=== PATIENT | female | born 2000 | race Caucasian/White ===

== ENCOUNTER 2023-12-17 19:19 | Emergency (ER) | payer MEDICAID ==
[~2023-12-17] VITALS: Ht 157.5 cm; Wt 31.8 kg
[2023-12-17 19:25] VITALS: BP 117/60; PULSE 68; RESP 17; TEMP 98.4; O2SAT 98
[2023-12-17] MEDS: acetaminophen 325mg tablet PO ONE (20:29)
== END 2023-12-17 21:04 | disposition home or self-care (01) ==
LOC: ER 19:19
DX: S89.92XA Unspecified injury of left lower leg, initial encounter (principal); M25.562 Pain in left knee; W19.XXXA Unspecified fall, initial encounter; Y93.89 Activity, other specified; Y92.89 Other specified places as the place of occurrence of the external cause; Y99.8 Other external cause status
CPT/HCPCS: 73564; 99283; A6449

== ENCOUNTER 2025-02-23 13:49 | Emergency (ER) | payer MEDICAID ==
[~2025-02-23] VITALS: Ht 157.5 cm; Wt 80.8 kg
[2025-02-23 13:56] VITALS: TEMP 97.6
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
[2025-02-23] MEDS: normal saline 1000ML IV soln IVB STA (15:11)
[2025-02-23] MEDS: famotidine/PF 10 mg/ml inj IV ONE (15:11)
[2025-02-23] MEDS: albuterol 2.5 MG/3 ML nebule NEB ONE (15:16)
[2025-02-23 15:18] VITALS: PULSE 76; RESP 16; O2SAT 100
[2025-02-23 15:21] VITALS: PULSE 69; RESP 16; O2SAT 100
[2025-02-23] MEDS ORDERED: PRED20TA PO (15:54)
[2025-02-23] MEDS ORDERED: ALBU18HF2 INH (15:54)
[2025-02-23] MEDS ORDERED: FAMO-129 PO (15:54)
[2025-02-23 16:18] VITALS: BP 122/67; PULSE 78; RESP 21; O2SAT 100
== END 2025-02-23 16:22 | disposition home or self-care (01) ==
LOC: ER 13:50
DX: T78.40XA Allergy, unspecified, initial encounter (principal); Z79.899 Other long term (current) drug therapy; X58.XXXA Exposure to other specified factors, initial encounter
CPT/HCPCS: 94640; 96374; 96375; 99284; J2919; J3490; J7030; 94760

== ENCOUNTER 2025-03-13 13:09 | Emergency (ER) | payer MEDICAID ==
[~2025-03-13] VITALS: Ht 157.5 cm; Wt 81.3 kg
[~2025-03-13 13:09] MED LIST: ALBU18HF2 INH; FAMO-129 PO; PRED20TA PO
[2025-03-13] MEDS: famotidine/PF 10 mg/ml inj IV ONE (13:23)
--- NOTE | 2025-03-13 13:23 | Physician Documentation ---
History of Present Illness ~ Chief Complaint: Allergic Reaction Stated Complaint: ALLERGIC REACTION Time Seen by MD: 13:24 Primary Medical Doctor: Rick almeida HPI 24-year-old female presents to the emergency department reporting that she accidentally ingested cinnamon shortly prior to arrival. She did use her home epinephrine pen. This was aproximately 20 minutes ago. Symptoms include wheezing, chest tightness, throat tightness. She feels that her epinephrine helped, but only a little bit. Medication Reconciliation Allergies: Coded Allergies: cinnamon (Verified Allergy, Severe, Anaphylaxis, 03/13/25) Scheduled Famotidine (Pepcid), 1 TAB PO Q12H Prednisone* (Prednisone*), 2 TAB PO DAILY Scheduled PRN Albuterol Sulfate (Ventolin Hfa), 2 PUFFS INH Q4HPRN PRN for wheezing Epinephrine (Epinephrine), 1 SYR IM ONCE PRN for anaphylaxis Past Medical History Alcohol Use: Occasionally Drug Use: none Review of Systems ROS As stated above in the HPI, otherwise all systems are reviewed and negative. Physical Exam Vital Signs: Temperature: 97.0, Source: Temporal, Heart Rate: 92, Respiratory Rate: 16, BP: 124/59, Pulse Oximetry: 98, Weight: 81.300 Oxygen Flow Rate: 0 Physical Exam General: Alert, mild distress. HEENT: PERRL, EOMI, no injection, moist mucous membranes. Airway patent with uvula visible midline. Neck: Full range of motion. Respiratory: Mild wheezing, tachypnea. Chest: No accessory muscle use. Cardiovascular: Regular rate and rhythm, no murmurs. Tachycardic. Gastrointestinal: Soft, nontender, nondistended. Bowels sounds present. Extremities: Normal range of motion, no deformity. Neurologic: Oriented x4. Psychiatric: Normal mood and affect. Skin: Normal color, warm and dry. No edema, no ecchymosis. Progress Progress Note 1325: Reevaluated patient at bedside 5 minutes after solu-medrol, famotidine, and diphenhydramine. Airway remains patents. Sats over 100%. Mild distress, appears anxious, but reports that she is slowly but steadily feeling improved. Holding epi at this time. 1345: Reevaluated patient at bedside. Continues to feel improved. 1512: Patient has been observed in ER for over two hours. On reevaluation, she reports feeling completely improved. Epi pen sent to her pharmacy. Is to return if worse. Results/Orders Results/Orders Orders - BARAK MORALES SAFETY SCIENTIST Saline Lock (03/13/25 13:14) Completed Orders - BARAK MORALES SAFETY SCIENTIST Epinephrine Inj (Adrenalin Inj) (03/13/25 13:15) Diphenhydramine Inj (Benadryl Inj.) (03/13/25 13:15) Famotidine/Pf Iv Inj (Pepcid Iv Inj) (03/13/25 13:15) Methylprednisolone Sod Succ (Solumedrol (03/13/25 13:15) Electrocardiogram (03/13/25 ) Normal Saline 1000ml (0.9% Sodium Chlori (03/13/25 13:25) Ondansetron Inj. (Zofran 4mg/2ml Vial) (03/13/25 13:25) Medications Received in ER Medications (Trade) Dose Ordered Sig/Brenden Route PRN Reason Start Time Stop Time Status Last Admin Dose Admin (Benadryl inj.) 50 mg ONCE ONCE IV 03/13/25 13:15 03/13/25 13:16 DC 03/13/25 13:23 50 MG (Pepcid IV inj) 40 mg ONCE ONCE IV 03/13/25 13:15 03/13/25 13:16 DC 03/13/25 13:23 40 MG (SoluMEDROL 125mg inj) 125 mg ONCE ONCE IV 03/13/25 13:15 03/13/25 13:16 DC 03/13/25 13:23 125 MG Sodium Chloride 1,000 ml @ 1,000 mls/hr ONCE ONCE IV 03/13/25 13:25 03/13/25 14:24 DC 03/13/25 13:26 1,000 MLS/HR (Zofran 4mg/2ml vial) 4 mg ONCE ONCE IV 03/13/25 13:25 03/13/25 13:26 DC 03/13/25 13:26 4 MG Vital Signs 03/13/25 13:12 Temp 97.0 Pulse 92 Resp 16 B/P (MAP) 124/59 Pulse Ox 98 O2 Flow Rate 0 EKG/XRAY/CT/US/VASC/MRI EKG : Additional Comment 1324 EKG interpreted to show ST rate of 123. No ectopy. QTC prolonged at 514 ms. Medical Decision Making Additional information obtaine: old records Findings Patient has been here on two separate occasions for report of anaphylactic symptoms after ingesting cinnamon. These dates were 02/09/25 and 02/23/25. Differential Dx:Considerations: Include: Anaphylaxis, Angioedema, Bronchospasm, Contact dermatitis, Drug reaction, Hypotension, Latex allergy, Renal failure, Respiratory failure, Shock, Urticaria Departure Time of Disposition: 15:13 Disposition: 01 HOME / SELF CARE / HOMELESS Impression: Primary Impression: Acute allergic reaction Condition: Stable Discharge Instructions: Anaphylactic Reaction, Adult, [id number] Additional Instructions: You were sent a refill on your epi pen. Continue to avoid cinnamon. Followup with primary care, return immediately if worse. Departure Forms: Excuse form Work or School Excused From: Work Excuse beginning now through the following date: Mar 14, 2025 Referrals: NO PRIMARY CARE PROVIDER (PCP) Prescriptions Epinephrine (Epinephrine) 0.3 Mg/0.3 Ml Auto.injct 1 SYR IM ONCE PRN for anaphylaxis for 1 Day, #0.6 ML 0 Refills Prov: BARAK MORALES NP 03/13/25 Education Educated: Patient, Family Educated regarding: diagnosis, treatment, prognosis, need for follow up Signature Scribe Signature: x Attestation: The note accurately reflects work and decisions made by me.Barak Meyer NP 03/13/25 13:30 BARAK MORLAES NP Mar 13, 2025 13:23
[2025-03-13] MEDS: ondansetron/PF 4mg/2ml inj IV ONE (13:26)
[2025-03-13] MEDS: normal saline 1000ml 1,000 ML IV ONE (13:26)
--- NOTE | 2025-03-13 13:28 | ELECTROCARDIOGRAPH REPORT ---
[facility] Test Date: 2025-03-13 Test Time: 13:24:53 Pat Name: CASEY BO Department: EMERGENCY ROOM Room: Gender: F Social Work Msw: PRINCE : 2000 Requested By: BARAK MORALES Order Number: [id number] Reading MD: Measurements Intervals [place] Rate: 123 P: 62 MO: 144 QRS: 50 QRSD: 85 T: -73 QT: 359 QTc: 514 Interpretive Statements Sinus tachycardia Paired ventricular premature complexes Borderline repolarization abnormality Prolonged QT interval Please click the below link to view image of tracing.
[2025-03-13] MEDS ORDERED: EPIN0.3A3 IM (14:22)
[2025-03-13 15:23] VITALS: BP 110/58; PULSE 74; RESP 18; TEMP 97; O2SAT 99
== END 2025-03-13 15:32 | disposition home or self-care (01) ==
LOC: ER 13:10
DX: T78.40XA Allergy, unspecified, initial encounter (principal); Z88.8 Allergy status to other drugs, medicaments and biological substances; Z79.899 Other long term (current) drug therapy; X58.XXXA Exposure to other specified factors, initial encounter
CPT/HCPCS: 93005; 96361; 96374; 96375; 99284; J1200; J2405; J2919; J3490; J7030

== ENCOUNTER 2025-03-15 15:06 | Emergency (ER) | payer MEDICAID ==
[~2025-03-15] VITALS: Ht 157.5 cm; Wt 83.9 kg
[~2025-03-15 15:06] MED LIST changes: +EPIN0.3A3 IM
[2025-03-15 15:26] VITALS: BP 123/61; PULSE 73; RESP 18; TEMP 98.3; O2SAT 98
--- NOTE | 2025-03-15 15:29 | Physician Documentation ---
History of Present Illness ~ Stated Complaint: WRIST PAIN Time Seen by MD: 15:37 OK to notify your PCP?: Yes Primary Medical Doctor: Rick almeida Source: patient Mode of Arrival: POV Exam Limitations: no limitations HPI 24 yr old Female presents to the emergency department after a right hand injury while at work. She reports that she was at work, lifted a heavy box, and it fell and crushed her right hand. The pain is primarily to the right middle finger. Has not taken any medications prior to pain. Tetanus within 5 years: Yes Medication Reconciliation Allergies: Coded Allergies: cinnamon (Verified Allergy, Severe, Anaphylaxis, 03/15/25) Scheduled Famotidine (Pepcid), 1 TAB PO Q12H Prednisone* (Prednisone*), 2 TAB PO DAILY Scheduled PRN Albuterol Sulfate (Ventolin Hfa), 2 PUFFS INH Q4HPRN PRN for wheezing Epinephrine (Epinephrine), 1 SYR IM ONCE PRN for anaphylaxis Past Medical History Past Medical History: No Pertinent History Alcohol Use: Occasionally Drug Use: none Review of Systems All Other Systems at this time: Reviewed and Negative ROS As stated above in the HPI, otherwise all systems are reviewed and negative. Physical Exam Vital Signs: RN Vital Signs have been reviewed: Yes Physical Exam General: Alert, no apparent distress. HEENT: PERRL, EOMI, no injection, moist mucous membranes. Neck: Full range of motion. Respiratory: Lungs clear, no respiratory distress. Chest: No accessory muscle use. Cardiovascular: Regular rate and rhythm, no murmurs. Gastrointestinal: Soft, nontender, nondistended. Bowels sounds present. Extremities: Mildly reduced/painful ROM right hand, most noted at middle finger. No obvious deformity. Neurologic: Oriented x4. Psychiatric: Normal mood and affect. Skin: Normal color, warm and dry. No edema, no ecchymosis. General Appearance: alert, WD/WN, no apparent distress Progress Results/Orders Reviewed/noted all lab results: Yes Results/Orders Vital Signs 03/15/25 15:26 Temp 98.3 Pulse 73 Resp 18 B/P (MAP) 123/61 Pulse Ox 98 O2 Flow Rate 0 EKG/XRAY/CT/US/VASC/MRI Bone/Soft Tissue X-Ray (Ext.) : Additional Comment Right wrist X ray as interpreted by me; no joint effusion, no acute fracture, no soft tissue swelling, no dislocation, or foreign body in the right wrist, right hand or right fingers. Medical Decision Making Additional information obtaine: old records Findings Physical exam is unremarkable her that slight bruising and edema to right middle finger. She is able to make a fist with the right hand. X-rays negative for f racture of the right wrist, hand or fingers. We discussed home care instructions as well as discharge instructions. General Diff Dx:Considerations: Include: Fracture Shoulder Diff Dx:Consideration: Include: Other Elbow Diff Dx:Considerations: Include: Other Wrist Diff Dx:Considerations: Include: Dislocation, Fracture-carpal, Fracture- radius, Fracture-ulna Hand Diff Dx:Considerations: Include: Fracture-carpal, Fracture-metacarpal, Fracture-phalynx, Fracture-radius, Fracture-ulna, Sprain Finger Diff Dx:Considerations: Include: Fracture, Neurovascular injury Departure Disposition: 01 HOME / SELF CARE / HOMELESS Impression: Primary Impression: Wrist joint pain Condition: Stable Discharge Instructions: Wrist Pain, Adult Additional Instructions: Follow up with the work comp doctor next week. Today your x-rays were negative for right wrist, hand or finger fractures. Please rest, ice, elevate your hand. You can ice for 20 minutes on 20 minutes off. After 48 hours you can alternate ice and heat. You can use [id number] Tylenol or ibuprofen for pain relief. Return back here for any new or worsening symptoms. Departure Forms: Excuse form Work or School Excuse beginning now through the following date: Mar 18, 2025 Referrals: NO PRIMARY CARE PROVIDER (PCP) Education Educated: Patient Educated regarding: diagnosis, treatment, prognosis, need for follow up Additional Comment Medical Screen Exam This patient recieved a medical screening examination. After reviewing the individual's medical complaints with presenting symptoms and performing an appropriate physical examination, it was determined that no immediate life- threatening emergency medical condition is present. This individual is also not a women having contractions. Signature Scribe Signature: x Attestation: Scribed for Keila Lancaster by Keila Meyer NP . 03/15/25 16:36 Parts of this note were created using [employer] voice recognition software program. While efforts were made to correct any mistakes made by this voice recognition software program, nonsensical phrases may remain in this note. In addition, there may be errors and syntax, grammar, content and spelling. BARAK MORALES PARTS ROOM ASSOCIATE Mar 15, 2025 15:29 KEILA LANCASTER [employer] Mar 15, 2025 16:37
--- NOTE | 2025-03-15 15:43 | RADIOLOGY REPORT ---
CLINICAL HISTORY: trauma TECHNIQUE: 3 views of the right hand were obtained. COMPARISON: DI KNEE, COMP 4 VW MIN on DOS: 12/17/23 FINDINGS: No acute fracture or dislocation is seen. No soft tissue abnormality is evident. There are no significant degenerative changes. IMPRESSION: NO ACUTE RADIOGRAPHIC ABNORMALITY OF THE RIGHT HAND.
== END 2025-03-15 16:47 | disposition home or self-care (01) ==
LOC: ER 15:07
DX: M25.531 Pain in right wrist (principal); Z88.8 Allergy status to other drugs, medicaments and biological substances; Z72.89 Other problems related to lifestyle; W23.0XXA Caught, crushed, jammed, or pinched between moving objects, initial encounter; Y93.89 Activity, other specified; Y92.89 Other specified places as the place of occurrence of the external cause; Y99.0 Civilian activity done for income or pay
CPT/HCPCS: 73130; 99283